=== PATIENT | male | born 1970 | race Caucasian/White ===

== ENCOUNTER 2016-10-31 20:57 | Emergency (ER) | payer SELFPAY | END 2016-11-01 00:51 | disposition home or self-care (01) | LOC: ER 20:57 | DX: S40.011A Contusion of right shoulder, initial encounter (principal); S50.311A Abrasion of right elbow, initial encounter; R07.81 Pleurodynia; M79.1 Myalgia; W01.0XXA Fall on same level from slipping, tripping and stumbling without subsequent striking against object, initial encounter; Y92.69 Other specified industrial and construction area as the place of occurrence of the external cause; Y99.0 Civilian activity done for income or pay; F17.210 Nicotine dependence, cigarettes, uncomplicated; F11.21 Opioid dependence, in remission | CPT/HCPCS: 71250; 73030; 73080; 96372; 99283-25 ==